=== PATIENT | male | born 1935 | race Caucasian/White ===

== ENCOUNTER 2017-06-21 05:47 | Inpatient (IN) ==
[2017-06-21 06:30] VITALS: BMI 21.5
[2017-06-21] MEDS ORDERED: MIDAZOLAM 2mg/2ml INJECTION IVP ONE (06:46)
--- NOTE | 2017-06-21 06:46 | Anesthesia Preoperative Report ---
Anesthesia Preoperative Record - Date and Time Date: 06/21/17 Preoperative Diagnosis: ORIF ankle S82.841A Proposed Procedure: Right ORIF bimalleolar fractures NPO Since Date: 06/21/17 NPO Since Time: 00:00 Allergies/Adverse Reactions: Allergies Allergy/AdvReac Type Severity Reaction Status Date / Time No Known Allergies Allergy Verified 06/19/17 10:29 - Vital Signs Vital Signs: Temperature 97.7 F 06/21/17 06:05 Pulse Rate 71 06/21/17 06:15 Respiratory Rate 15 06/21/17 06:05 Blood Pressure 121/57 06/21/17 06:05 Pulse Oximetry 96 06/21/17 06:05 Height and Weight: Height 1.93 m Weight 80.3 kg Body Mass Index 21.5 - Medications Inpatient Medications: Current Medications Lactated Ringer's (Lactated Ringers) 1,000 mls @ 50 mls/hr IV .Q20H RICHIE Lidocaine HCl (Xylocaine-Mpf 1% Vial) 0.1 mg ID O ONE Stop: 06/21/17 16:12 Morphine Sulfate (Morphine Sulfate Inj) 2 - 10 mg IV Q1H PRN PRN Reason: Pain Ondansetron HCl (Zofran) 4 mg IVP Q6H PRN PRN Reason: Nausea &/or vomiting Sodium Chloride (Iv Flush) 10 ml IV PRN PRN PRN Reason: Flushing Tramadol HCl (Ultram) 50 - 100 mg PO Q4H [facility] Home Medications: Home Medications Medication Instructions Recorded Confirmed Type Core minerals 1 tab PO DAILY 06/17/17 06/21/17 History Proccosa by USANA 1 tab PO DAILY 06/17/17 06/21/17 History Proscar (finasteride) 5 mg tablet 5 mg PO DAILY 06/17/17 06/21/17 History Raeann-Antioxidant by USANA 1 tab PO DAILY 06/17/17 06/21/17 History cholecalciferol (vitamin D3) 2,000 2,000 unit PO DAILY cap 06/17/17 06/21/17 History unit capsule lisinopril 10 mg tablet 10 mg PO DAILY 06/17/17 06/21/17 History phytonadione (vitamin K1) See Label Instructions PO .COMPLEX 06/17/17 06/21/17 History Aspirin [Ecotrin] 81 mg PO HS 06/21/17 06/21/17 History Tramadol HCl [Ultram] 1 tab PO Q6H PRN 06/21/17 06/21/17 History Is Patient on Beta Narcisa?: No - Medical History Respiratory: DENIES: Asthma, Bronchitis, Chronic Obstructive Pulmonary Disease (COPD), Dyspnea, Orthopnea, Pulmonary Embolism, Pneumonia, Upper Respiratory Infection, Pulmonary Edema, Sleep Apnea, Tuberculosis, Other Cardiovascular: Reports: Hypertension DENIES: Abnormal EKG, Angina, Arrhythmia, Congestive Heart Failure, Coronary Artery Disease, Heart Murmur, Hypotension, High Cholesterol, Myocardial Infarction, Rheumatic Fever, Valvular Heart Disease, Other Gastrointestional: Reports: Gastroesophageal Reflux Disease ("very mild") Neuro/Musculoskeletal: Denies: HX.MS.OSAR, Back Problems, Cerebrovascular Accident, Depression, Headaches, Loss of Consciousness, Muscle Weakness, Neuromuscular Disorder, Paralysis, Paresthesia, Syncope, Seizures, Other Renal/Endocrine: DENIES: Diabetes Mellitus Type 1, Diabetes Mellitus Type 2, Renal Failure, Dialysis, Thyroid Disease, Weight Loss, Weight Gain, Other Other History: DENIES: Anesthesia Reactions, Now, Blood Transfusions, Chemotherapy , Cancer, Hemophilia, Malignant Hyperthermia, Sickle Cell Disease, Other - Surgical History HEENT Surgeries: Reports: Eye Surgery (Cataract surgery) Anesthesia Reactions: None Hx Family Anesthesia Reaction: No History of Motion Sickness: No - Social History Smoking Status: Former smoker (quit 40 years ago) Hx Chewing Tobacco Use: No Second Hand Exposure: No Substance Use Type: does not use Alcohol Intake Frequency: 0-2 drinks per day - Pertinent Findings EKG: Sinus Rhythm - Physical Exam Respiratory Exam: Present: lungs clear, bilateral breath sounds equal Cardiovascular Exam: Present: regular rate and rhythm, no murmur - Airway Assessment Mallampati Score: II TMD: 3 Fingerbreadths Overall Assessment: may be difficult intubation - ASA ASA Score: 2 - Plan Anesthesia: General TIVA, Regional Block Peripheral Nerve Block: Popliteal-Right, Saphenous-Right - Discussion Discussion: Discussed risks/options/alternatives of anesthesia and questions answered. Patient consents. Nursing pain assessment noted. Attestation Statement: Prior to the delivery of any anesthetic medication, I examined the patient, developed the plan, obtained the patient's consent and discussed the risk and benefits of the procedure with the patient/guardian.
--- NOTE | 2017-06-21 07:17 | Anesthesia Procedure Note ---
Peripheral Nerve Blockade - Procedure Physician: Nolan Negro MD Date: 06/21/17 Surgical Procedure: orif right ankle Discussion: Discussed risks/options/alternatives of anesthesia and questions answered. Patient consents. Nursing pain assessment noted. Block Start: 06:53 Block Stop: 07:04 Blocked Employed: Adductor Canal, Popliteal Indication: Post-Operative Pain Approach: Right Side Confirmed Position: Supine Patient: Consent, Risks/Benefits Discussed, Informed, Post Block Act. Discussed IV Sedation: Yes Midazolam (mg): 2 Initial Vital Signs: Temperature 97.7 F 06/21/17 06:05 Temperature Source Oral 06/21/17 06:05 Pulse Rate 73 06/21/17 06:05 Respiratory Rate 15 06/21/17 06:05 Blood Pressure 121/57 06/21/17 06:05 Blood Pressure Mean 78 06/21/17 06:05 Blood Pressure Position Supine 06/21/17 06:05 Pulse Oximetry 96 06/21/17 06:05 Oxygen Delivery Method 06/21/17 06:05 Post Vital Signs: Temperature 97.7 F 06/21/17 06:05 Pulse Rate 71 06/21/17 06:15 Respiratory Rate 15 06/21/17 06:05 Blood Pressure 121/57 06/21/17 06:05 Pulse Oximetry 96 06/21/17 06:05 Initial Pain Pain Score: 5 Post Block Pain Score: 0 Prep: Chlorhexadine/ETOH Ultrasound Used?: Yes - Injectate Ropivacaine (%): 0.5 Ropivacaine (mL): 30 Lidocaine (%): 1 Lidocaine (mL): 5 Was Epi 1:200,000 Used?: No Injection: Injection made incrementally with constant monitoring and aspiration every ml
[2017-06-21] MEDS ORDERED: PROPOFOL 20 ML ONE ×2 (07:25→08:24)
[2017-06-21] MEDS ORDERED: PROPOFOL 500 MG/50 ML VIAL ONE ×2 (07:25→07:35)
[2017-06-21] MEDS ORDERED: CEFAZOLIN 1 G INJECTION IVP ONE (08:00)
--- NOTE | 2017-06-21 09:30 | Remote Fluorsocopy Report ---
Indication: ORIF RT ANKLE FX PROCEDURE: RF ankle RT 3 view: Encounter: Initial Comparison: None Findings: Three fluoroscopic spot images are submitted for interpretation. Images show open reduction and internal fixation of the distal tibial and fibular fractures with placement of two partially threaded cannulated lag screws across the medial malleolar fracture and a lateral side plate and screws across the distal fibular fracture. Alignment is anatomic. Impression: Intraoperative fluoroscopy as above. Fluoroscopy time is 93 seconds. Fluoroscopy dose is 349.8 mRad. .
[2017-06-21] MEDS ORDERED: ACETAMINOPHEN 325 MG TABLET PO PRN (09:31)
[2017-06-21] MEDS ORDERED: CEFAZOLIN 1 G in NS 100 ML IV SCH (09:31)
[2017-06-21] MEDS ORDERED: SENNA + DOCUSATE TABLET PO PRN (09:31)
[2017-06-21] MEDS ORDERED: DOCUSATE SODIUM 100 MG CAPSULE PO PRN (09:31)
--- NOTE | 2017-06-21 09:37 | Anesthesia Postoperative Note ---
- Date and Time Date: 06/21/17 Time: 09:37 - Status Patient Participated in Evaluation: Patient Participated in Person Vital Signs: Temperature 97.8 F 06/21/17 09:35 Pulse Rate 58 L 06/21/17 09:35 Respiratory Rate 16 06/21/17 09:35 Blood Pressure 104/58 06/21/17 09:35 Pulse Oximetry 95 06/21/17 09:35 Respiratory Function: Airway Patent Cardiovascular Function: Regular Pulse EKG: Sinus Rhythm Mental Status: Alert and Oriented Pain Intensity: 0 Hydration: Taking PO Fluids Complications During Recover: None Apparent - Follow-Up Instructions Instructions: Per Surgeon
[2017-06-21] MEDS: NS 1,000 ML IV SCH ×2 (10:36→23:23)
[2017-06-21] MEDS ORDERED: LR 1,000 ML IV SCH (12:30)
--- NOTE | 2017-06-21 13:27 | Operative Note ---
DATE OF PROCEDURE 06/21/2017 PREOPERATIVE DIAGNOSIS Right bimalleolar ankle fracture, displaced. POSTOPERATIVE DIAGNOSIS Right bimalleolar ankle fracture, displaced. PROCEDURE Open reduction internal fixation, right bimalleolar ankle fracture. SURGEON Nolan Negro MD CARVING MACHINE OPERATOR Leonardo Stout PA-C ANESTHESIA General with regional block. Fluids Please refer to Anesthesia chart. EBL Minimal. TOURNIQUET Refer to Anesthesia chart. COMPLICATIONS None. CONDITION Stable to Recovery Room DESCRIPTION OF PROCEDURE The patient was identified in the preoperative holding area. The operative extremity was identified and appropriately marked. The risks, benefits, alternatives and potential complications were discussed and informed consent was obtained. The patient was taken to the operating theatre, placed supine on the operating table. Appropriate cardiorespiratory monitors were applied. General anesthesia was induced. A regional block had been placed in preoperative holding. The patient was positioned supine with a bump underneath the right hip. Tourniquet was applied to the right thigh though not yet inflated. The right lower extremity was sterilely prepped and draped in the usual fashion. Surgical time-out was performed, confirmed with myself, the metallic yarn slitting machine operator and circulating nurse. Preoperative antibiotics were given. The leg was exsanguinated with an Esmarch and the tourniquet inflated. A standard lateral longitudinal incision was created centered over the lateral malleolus. Electrocautery was used for hemostasis as necessary. Blunt dissection was carried proximally to avoid injury to the superficial peroneal nerve. Distally, periosteal flaps were elevated around the fracture site. This was a Cook B type long oblique fracture. The fracture was displaced and the fracture hematoma and tissue cleared from the fracture site. With help from the nursing assistants teacher longitudinal retraction and internal rotation were applied which helped to reduce the fracture. A xmzmq-cd-vaacj reduction clamp was then placed perpendicular to the fracture line. X-rays showed good reduction. Soft tissue was cleared anteriorly as we used standard AO technique to place a lag screw from anterior and proximal to posterior and distal perpendicular to the fracture. This provided good fixation. The krjzg-gh-dhbgu reduction clamp was then removed. Appropriate-sized lateral fibular plate was then positioned. Four locking screws were placed distal to the fracture in the lateral malleolus while four additional bicortical screws were placed proximal pulling the plate to the bone and providing overall excellent stabilization. X-rays were again obtained. This had indirectly reduced the medial malleolar fracture as well. The wound was copiously irrigated laterally as the nursing assistants teacher began to close this in a standard layered fashion. I moved to the medial side of the ankle. A curvilinear incision was created over the medial malleolus. The fracture was identified. Retractors were placed. The soft tissue and the lesser saphenous vein were retracted and preserved, The periosteum was elevated off the fracture site and fracture hematoma again removed from the fracture. The fracture was then reduced under direct visualization and provisionally fixed with a gxoce-ir-ogzsu reduction clamp. Fluoroscopy confirmed reduction. The fracture was a bit unique in that it traveled slightly more posterior and inferior than many medial malleolar fractures, so we had to place our screws in a slightly more yftdylsw-cy-sassajyiw direction to get perpendicular to the fracture line. K-wires were placed and position was confirmed with fluoroscopy in the AP and lateral planes. Two cannulated, partially threaded 4-0 screws were then placed perpendicular to the fracture line, providing excellent compression across the fracture. The K-wires were removed. Final x-rays were obtained including the AP, lateral and mortise planes. Stress mortise revealed no widening of the syndesmosis. The medial incision was then copiously irrigated and closed in a standard layered fashion. Sterile dressings were applied followed by a well-padded posterior slab and sugar-tong splint. The tourniquet had been deflated. The patient was awakened from anesthesia and taken to the recovery room in stable and satisfactory condition. MADELAINE
[2017-06-21] MEDS: FINASTERIDE 5 MG TABLET PO SCH (15:57)
[2017-06-21] MEDS: CEFAZOLIN 1 G in NS 50 ML IV SCH ×2 (15:58→23:22)
[2017-06-21] MEDS: TRAMADOL 50 MG TABLET PO SCH ×3 (16:08→23:45)
[2017-06-21] MEDS ORDERED: SALINE FLUSH 10ml SYRINGE IV PRN (16:11)
[2017-06-21] MEDS ORDERED: ONDANSETRON 4 MG/2 ML INJECTION IVP PRN (16:11)
[2017-06-21] MEDS ORDERED: LIDOCAINE 1% (10mg/ml) 2mL INJ PF SDV ID ONE (16:11)
[2017-06-21] MEDS: HYDROCODONE/APAP 7.5 MG/325 MG TABLET PO PRN ×2 (17:57→23:44)
[2017-06-21] MEDS: ENOXAPARIN 40 MG/0.4 ML INJECTION SQ SCH (20:54)
[2017-06-21] MEDS ORDERED: ASPIRIN *EC* 81 MG TABLET PO SCH (21:00)
[2017-06-21] MEDS: MORPHINE SULFATE 10 MG SYRINGE IV PRN (23:50)
[2017-06-22] MEDS: MORPHINE SULFATE 10 MG SYRINGE IV PRN (00:51)
[2017-06-22] MEDS: TRAMADOL 50 MG TABLET PO SCH ×5 (04:13→21:38)
[2017-06-22] MEDS: FINASTERIDE 5 MG TABLET PO SCH (08:18)
[2017-06-22] MEDS ORDERED: LISINOPRIL 10 MG TABLET PO SCH (09:00)
--- NOTE | 2017-06-22 09:14 | Orthopedic Progress Note ---
Date: Date: 06/22/17 Time: 909 Subjective/Severity of Illness: Melquiades is sitting up in bed this morning eating breakfast when I visit. States he wasn't able to sleep well last night due to noise. Pain has been well controlled with Tramadol. Has been up with PT using walker per patient, non-weight bearing on right leg. Denies nausea, abdominal pain, chest pain, soa. Orthopedic Objective PO Vital signs: Temperature 99.4 F 06/22/17 00:34 Pulse Rate 83 06/22/17 08:11 Respiratory Rate 16 06/22/17 08:11 Blood Pressure 159/73 H 06/22/17 08:11 Pulse Oximetry 94 06/22/17 08:11 Height and Weight: Height 6 ft 4 in Weight 80.3 kg Body Mass Index 21.5 - Constitutional General Appearance: Present: alert, orientated x3, well developed, well nourished - Respiratory Exam Present: non-labored - Cardiovascular Exam Present: pedal pulses intact - Extremities Exam Extremities: Present: pulses intact - Knee Exam Knee Exam: Absent: painful ROM - Surgical Site Incision: dressing intact, no drainage - Neurological Exam Present: intact to light touch, no deficits - Labs Result Diagrams: 06/22/17 03:46 06/22/17 03:46 Abnormal lab results 06/22/17 06/22/17 Range/Units 03:46 03:46 WBC 13.2 H (4.5-11.0) T/MM3 RBC 4.18 L (4.50-5.90) M/MM3 Hct 40.8 L (41-53) % Neutrophils % (Manual) 81.0 H (33-66) % Lymphocytes % (Manual) 17.0 L (23-45) % Neutrophils # (Manual) 10.7 H (1.8-7.7) T/MM3 Creatinine 0.6 L (0.8-1.5) mg/dL Glucose 118 H (75-110) MG/DL H & H 06/22/17 Range/Units 03:46 Hgb 13.9 (13.5-17.5) GM/DL Hct 40.8 L (41-53) % Orthopedic Assessment and Plan (1) Bimalleolar fracture of right ankle Status: Acute - Anticoagulation Therapy Anticoagulation: Lovenox 40 mg SQ Daily x 30 days from day of surgery Hospital Course Summary Disclaimer: The visit summary below is not to be considered part of the above Progress Note. Hospital Course: Current anti-coagulation with Lovenox 40mg SC daily x 30days post op for VTE prophylaxis. SCD's. PT/OT services to improve independent function. Discharge Planning per Case Management. Expected discharge to SNU.
[2017-06-22] MEDS: HYDROCODONE/APAP 7.5 MG/325 MG TABLET PO PRN ×2 (15:17→23:54)
[2017-06-22 15:30] VITALS: RESP 16
[2017-06-22] MEDS: ENOXAPARIN 40 MG/0.4 ML INJECTION SQ SCH (20:07)
[2017-06-23] MEDS: TRAMADOL 50 MG TABLET PO SCH ×6 (01:16→21:34)
--- NOTE | 2017-06-23 08:26 | Orthopedic Progress Note ---
Date: Date: 06/23/17 Time: 821 Subjective/Severity of Illness: Melquiades is sitting up in bed this morning eating breakfast when I visit. He has controlled pain with Tramadol. He notices some annoying tingling in his ankle. Has been up with PT using walker per patient, non-weight bearing on right leg. Denies nausea, abdominal pain, chest pain, soa. Discharge plan is to the [facility] on Saturday. Orthopedic Objective PO Vital signs: Temperature 98.0 F 06/23/17 08:09 Pulse Rate 83 06/23/17 08:09 Respiratory Rate 16 06/23/17 08:09 Blood Pressure 170/72 H 06/23/17 08:09 Pulse Oximetry 94 06/23/17 08:09 Height and Weight: Height 6 ft 4 in Weight 172 lb 13.478 oz Body Mass Index 21.5 - Constitutional General Appearance: Present: alert, orientated x3, well developed, well nourished - Respiratory Exam Present: non-labored - Cardiovascular Exam Present: pedal pulses intact - Extremities Exam Extremities: Present: pulses intact Comments: splint is intact, dry. I did loosen the RISA bandage and web roll which seemed to help his tingling. - Knee Exam Knee Exam: Absent: painful ROM - Surgical Site Incision: dressing intact, no drainage - Integumentary Exam Present: normal turgor - Neurological Exam Present: intact to light touch, no deficits - Labs Result Diagrams: 06/23/17 04:19 06/23/17 04:19 Abnormal lab results 06/23/17 06/23/17 Range/Units 04:19 04:19 RBC 4.47 L (4.50-5.90) M/MM3 Iroquois % (Auto) 11.9 H (0-9.0) % [place]ois # (Auto) 1.2 H (0-0.8) T/MM3 Abs Immat Gran (auto) 0.05 H (0.00-0.03) T/MM3 Creatinine 0.6 L (0.8-1.5) mg/dL H & H 06/22/17 06/23/17 Range/Units 03:46 04:19 Hgb 13.9 15.0 (13.5-17.5) GM/DL Hct 40.8 L 43.7 (41-53) % Orthopedic Assessment and Plan (1) Bimalleolar fracture of right ankle Status: Acute Qualifiers: Encounter type: subsequent encounter Fracture type: closed Assessment and Plan: Doing well. Non weight bearing continue PT/OT Lovenox 40mg SQ Q day for 30 days for DVT prevention caser to arrange SNU, ideally discharge on Saturday 2 week follow up with Leonardo CLEARY (2) Colon polyps Status: Acute (3) Cataract Status: Chronic Assessment and Plan: continue home meds (4) Hypertension Status: Chronic Qualifiers: Hypertension type: essential hypertension Qualified Code(s): I10 - Essential (primary) hypertension Assessment and Plan: BP has been trending up, renal function is good. I'll increase his Lisinopril dose. - Anticoagulation Therapy Anticoagulation: Lovenox 40 mg SQ Daily x 30 days from day of surgery Hospital Course Summary Disclaimer: The visit summary below is not to be considered part of the above Progress Note. Hospital Course: Current anti-coagulation with Lovenox 40mg SC daily x 30days post op for VTE prophylaxis. SCD's. PT/OT services to improve independent function. Discharge Planning per Case Management. Expected discharge to SNU.
--- NOTE | 2017-06-23 08:42 | Extended Care Facility Orders ---
Admission Orders Admit to:: Prison Allergies/Adverse Reactions: Allergies No Known Allergies Allergy (Verified 06/19/17 10:29) Admitting Diagnosis: ORIF ankle S82.841A Admitting Physician: Nolan Negro MD Attending Physician: Nolan Negro MD Anticiapted Length of Stay: 30 days or less Rehab Potential: good Rehab Prognosis: good Diet: 06/21/17 Lunch Regular Diet [DIET] Diet Modifications: May use Facility Protocol or Standing Orders: Yes May have flu vaccine: Yes Evaluations/Treatment: PT (NON weight bearing on right ankle), OT (NON weight bearing on right ankle) Prison Certification: I certify that SNF services are required to be given on an Inpatient basis because of the patients need for usp care on a continuing basis for the condition(s) for which he/she received inpatient hospital services prior to his/her transfer to the SNF. SNF inpatient care is necessary for the following reasons Indication for Prison: Postop Assessment Care - Additional Information In Event of Arrest: Start CPR,call 911,send patient to the ER Resident is Aware of Diagnosis: Yes Additional Orders: [place] [facility] medication [place]. Please call [phone] to arrange a 2 week post op appointment with Leonardo CLEARY.
[2017-06-23] MEDS: FINASTERIDE 5 MG TABLET PO SCH (09:31)
[2017-06-23] MEDS: LISINOPRIL 20 MG TABLET PO SCH (09:36)
[2017-06-23] MEDS: ENOXAPARIN 40 MG/0.4 ML INJECTION SQ SCH (21:34)
[2017-06-24] MEDS: TRAMADOL 50 MG TABLET PO SCH ×5 (00:38→16:04)
--- NOTE | 2017-06-24 08:48 | Orthopedic Progress Note ---
Date: Date: 06/24/17 Time: 844 Subjective/Severity of Illness: Pt is doing well. Pain is controlled. Pt is very thankful that he wasn't sent home too soon. He is going to [facility] in [place] for rehab. Expects discharge later today. Orthopedic Objective PO Vital signs: Temperature 96.6 F L 06/24/17 04:26 Pulse Rate 75 06/24/17 07:42 Respiratory Rate 16 06/24/17 04:26 Blood Pressure 139/68 06/24/17 07:42 Pulse Oximetry 95 06/24/17 07:42 Height and Weight: Height 6 ft 4 in Weight 173 lb 15.115 oz Body Mass Index 21.5 - Constitutional General Appearance: Present: alert, well developed, well nourished - Respiratory Exam Present: non-labored - Cardiovascular Exam Present: pedal pulses intact - Extremities Exam Extremities: Present: pulses intact - Knee Exam Knee Exam: Absent: painful ROM - Surgical Site Incision: dressing intact, no drainage - Integumentary Exam Present: normal turgor - Neurological Exam Present: intact to light touch, no deficits - Psychiatric Exam Present: alert - Labs Result Diagrams: 06/23/17 04:19 06/23/17 04:19 H & H 06/22/17 06/23/17 Range/Units 03:46 04:19 Hgb 13.9 15.0 (13.5-17.5) GM/DL Hct 40.8 L 43.7 (41-53) % Orthopedic Assessment and Plan (1) Bimalleolar fracture of right ankle Status: Acute Qualifiers: Encounter type: subsequent encounter Fracture type: closed Assessment and Plan: Doing well. Expect discharge to [facility] today. Non weight bearing continue PT/OT Lovenox 40mg SQ Q day for 30 days for DVT prevention case technician to arrange SNU, ideally discharge on Saturday 2 week follow up with Leonardo CLEARY (2) Hypertension Status: Chronic Qualifiers: Hypertension type: essential hypertension Qualified Code(s): I10 - Essential (primary) hypertension Assessment and Plan: BP 139/68 this AM. (3) Cataract Status: Chronic Assessment and Plan: continue home meds (4) Colon polyps Status: Acute Hospital Course Summary Disclaimer: The visit summary below is not to be considered part of the above Progress Note. Hospital Course: Current anti-coagulation with Lovenox 40mg SC daily x 30days post op for VTE prophylaxis. SCD's. PT/OT services to improve independent function. Discharge Planning per Case Management. Expected discharge to SNU.
[2017-06-24] MEDS: FINASTERIDE 5 MG TABLET PO SCH (10:16)
[2017-06-24] MEDS: LISINOPRIL 20 MG TABLET PO SCH (10:16)
--- NOTE | 2017-06-24 10:48 | Discharge Summary ---
Orthopedic Discharge Info Date of admission: 06/21/17 09:31 Primary care physician: Narciso Tomlinson MD Attending Physician: Nolan Negro MD Consults: 06/21/17 06:12 Consult to Anesthesiology [CONS] Routine Reason For Exam: as per MUSTAPHA//DO 06/21/17 09:13 Case Management Consult [Case Management Consult] [CONS] Routine Reason For Exam: help with discharge planning. - Discharge Diagnosis (1) Hypertension Qualifiers: Hypertension type: essential hypertension Qualified Code(s): I10 - Essential (primary) hypertension Status: Chronic (2) Cataract Status: Chronic (3) Colon polyps Status: Acute (4) Bimalleolar fracture of right ankle Qualifiers: Encounter type: subsequent encounter Fracture type: closed Status: Acute - Procedures Procedures: ORIF right bimalleolar ankle fracture - Laboratory Result Diagrams: 06/23/17 04:19 06/23/17 04:19 Laboratory: H & H 06/22/17 06/23/17 Range/Units 03:46 04:19 Hgb 13.9 15.0 (13.5-17.5) GM/DL Hct 40.8 L 43.7 (41-53) % Orthopedic Discharge HPI - HPI Comments This patient was admitted for elective surgical tx of a bimalleolar ankle fracture. Further details of this is found in the admission H&P. Orthopedic Hospital Course Hospital course: 06/24/17 10:45 After appropriate preoperative clearance and signing of operative consent, the patient was given IV antibiotics, according to orthopedic protocol. The patient was taken to the operating room and underwent elective joint arthroplasty. Following surgery, antibiotics were discontinued less than 24 hours according to joint protocol. Appropriate anticoagulants were initiated and SCDs added for DVT prevention. The dressing was clean, dry, and intact. Pain control was obtained via multimodal approach. Bowel motivation addressed with scheduled and PRN medications. Early mobilization was initiated through PT services. Discharge arrangements made by a collaborative effort between the patient and Case Management. Follow-up is scheduled in 2-3 weeks. Discharge instructions given by orthopedic providers and nursing staff at discharge. Discharge condition was good. Care extended to > 2 midnight stays?: Yes Discharge Plan - Med Rec/Dispo Referrals/Follow Up: Leonardo Stout PA [Physician Lead Installer] - 2 Weeks Mir Instructions: [facility] [place] Pace Ankle Fixation Prescriptions: New Acetaminophen [Tylenol] 650 mg PO Q4H PRN tab PRN Reason: Pain Enoxaparin Sodium [Lovenox] 40 mg SQ Q24H #23 syringe Lisinopril [Prinivil] 20 mg PO DAILY tab Tramadol [Ultram] 50 - 100 mg PO Q4H #60 tab Continue Aspirin [Ecotrin] 81 mg PO HS cholecalciferol (vitamin D3) 2,000 unit capsule 2,000 unit PO DAILY cap Proccosa by USANA 1 tab PO DAILY Raeann-Antioxidant by USANA 1 tab PO DAILY Core minerals 1 tab PO DAILY Proscar (finasteride) 5 mg tablet 5 mg PO DAILY Discontinued Tramadol HCl [Ultram] 1 tab PO Q6H PRN PRN Reason: pain lisinopril 10 mg tablet 10 mg PO DAILY No Action phytonadione (vitamin K1) See Label Instructions PO .COMPLEX - Disposition 01 Discharged Home, Self-Care - Dismissal Complete Discharge Instructions are:: Complete
[2017-06-24 12:35] VITALS: PULSE 89
[2017-06-24 15:31] VITALS: BP 159/81; TEMP 97.4; O2SAT 95
== END 2017-06-24 16:05 | DRG 494 ==
LOC: SUR 05:47 → NMC.PERIOP 05:51 → SRG 09:31
PROVIDERS: ADMIT Orthopaedic Surgery; ATTEND Orthopaedic Surgery